=== PATIENT | male | born 1980 | race Caucasian/White ===

== ENCOUNTER → 2025-03-29 | Outpatient (CLI) | payer OTHER ==
--- NOTE | 2025-03-29 12:53 | XR ---
EXAMINATION TYPE: XR Hip Complete LT DATE OF EXAM: 03/29/2025 12:31 PM COMPARISON: None CLINICAL INDICATION: Male, 44 years old with history of M25.552 PAIN IN LEFT HIP; PHH, pain TECHNIQUE: XR Hip Complete LT; Frontal and lateral views FINDINGS: Post arthroplasty changes, hardware is intact, alignment is appropriate. No evidence of fra cture. No evidence of any acute osseous pathology or joint dislocation. IMPRESSION: Hip arthroplasty with hardware intact and in appropriate alignment. No acute fracture. [facility], , 03/29/2025 12:50 PM
--- NOTE | 2025-03-29 12:55 | XR ---
EXAMINATION TYPE: XR lumbar spine 2 or 3V DATE OF EXAM: 03/29/2025 12:31 PM COMPARISON: None CLINICAL INDICATION: Male, 44 years old with history of M25.552 PAIN IN LEFT HIP; PHH, pain TECHNIQUE: XR lumbar spine 2 or 3V - Frontal, lateral and coned in L5-S1 lateral views of the spine. FINDINGS: No evidence of any acute osseous pathology. No evidence of loss of vertebral body height i s seen. There is normal alignment of the lumbar vertebral bodies. Scattered disc space narrowing. Mul tilevel minimal osteophyte formation throughout the visualized spine. There is facet joint arthropath y throughout the spine. Scattered at least mild neural foraminal stenosis. IMPRESSION: 1. No acute fracture. 2. Mild multilevel disc degeneration. [facility], , 03/29/2025 12:52 PM
== END | disposition home or self-care (01) ==
LOC: RADXRMAIN 11:57
PROVIDERS: ATTEND Internal Medicine
DX: M51.360 Other intervertebral disc degeneration, lumbar region with discogenic back pain only (principal); Z96.642 Presence of left artificial hip joint
CPT/HCPCS: 72100; 73502